=== PATIENT | male | born 1955 | race Caucasian/White ===

== ENCOUNTER 2016-10-14 20:01 | Inpatient (IN) | payer OTHER ==
[~2016-10-14] VITALS: Ht 185.4 cm; Wt 91.8 kg
[2016-10-14 20:41] VITALS: BP 123/76
[2016-10-14] MEDS ORDERED: METHADONE HCL10 M1 PO (21:01)
[2016-10-14] MEDS ORDERED: SEROQUEL100 M1 PO (21:02)
[2016-10-14] MEDS ORDERED: SEROQUEL XR300 M1 PO (21:03)
[2016-10-14] MEDS ORDERED: NEURONTIN300 M1 PO (21:03)
[2016-10-14] MEDS ORDERED: COLACE100 M1 PO (21:04)
[2016-10-14] MEDS ORDERED: AMBIEN10 M1 PO (21:05)
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
[2016-10-15 08:04] VITALS: BP 102/57
[2016-10-15 08:59] LABS: ABSOLUTE BASOPHIL COUNT 0 /CUMM (0.0-0.2); ABSOLUTE EOSINOPHIL COUNT 0.2 /CUMM (0.0-0.7); ABSOLUTE GRANULOCYTE CT 1.9 /CUMM (1.4-6.5); ABSOLUTE LYMPH COUNT 2.7 /CUMM (1.2-3.4); ABSOLUTE MONOCYTE COUNT 0.3 /CUMM (0.10-0.60); BASOPHIL % 0.3 % (0.0-2.0); EOSINOPHIL % 3.3 % (0-5); GRANULOCYTE % 37.3 % (42.2-75.2); HEMATOCRIT 36.6 % (42-52); MEAN CORPUSCULAR HGB 30.8 PG (27.0-31.0); MEAN CORPUSCULAR HGB CONC 32.6 G/DL (33.0-37.0); MEAN CORPUSCULAR VOLUME 94.3 FL (80.0-94.0); MEAN PLATELET VOLUME 13.7 FL (7.4-10.4); RBC DISTRIBUTION WIDTH 13.1 % (11.5-14.5); RED BLOOD CELL CT 3.88 /CUMM (4.70-6.10)
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
[2016-10-15 10:11] LABS: PLATELET COUNT 123 /CUMM (130-400)
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
--- NOTE | 2016-10-15 11:39 | NUR ---
PT HAS BEEN CALM AND COOPERATIVE WITH STAFF AND PEERS. HE IS COMPLIANT WITH HIS MED REGIME AND WHEN ASKED HE DENIED SUICIDAL THOUGHTS. HE VERBALIZED HIS FEELINGS APPROPRIATELY IN GROUPS AND STATED HE IS GRIEVING THE OF HIS
[2016-10-15 12:29] VITALS: BP 105/63
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
--- NOTE | 2016-10-15 15:15 | SOCIAL WORKER PROG NOTE PSYCH ---
Social Work Progress Note Progress Note ABIEL WATTERS [id number] 1955 ABIEL WATTERS [id number] Pended Authorization # Client Authorization # Type of Request [id number] CONCURRENT Date of Admission/ Start of Services Requested From Submission Date 10/14/2016 10/15/2016 10/15/2016
--- NOTE | 2016-10-15 15:24 | SOCIAL WORKER PROG NOTE PSYCH ---
Social Work Progress Note Progress Note Patient and I met twice today to discuss future treatment and current status; and to get social history for patient. Patient was pleasant and cooperative throughout; however seemed to be holding back on any possible person who may be able to participate in a family meeting. He did say that one sister is on oxygen, and can't meet, but a telephone meeting might be possible. Patient maintains that he feels safe within the hospital setting, but states that he has always been a loner, and has had trouble with commmand hallucinations yesterday and in the past. Patient has had 3 prior suicide attempts in the past. He has little structure in life, and has medical problems which impact on his life. Will be working with patient to assess suicidality, and to see if he might be interested in a more intensive follow-up program such as an IOP, particularly if [facility] has one. Patient has participated in groups, and states that he feels comfortable on this unit
[2016-10-15 15:54] VITALS: BP 135/81
--- NOTE | 2016-10-15 16:05 | SOCIAL WORKER TX PLAN PSYCH ---
Treatment Plan - Please Document: - Evidence that there is ongoing collaboration between - the patient and the interdisciplinary team, - including the patient's active participation and - responsibility for engaging in the treatment regimen, - and that the treatment plan is individualized and - relevant to the patient's conditions. - Treatment plan should reflect documentation indicating - that all active therapeutic efforts are included. Strengths/Capabilities: has stable place to live Physical Limitations (Interventions): some difficulty geting around Problem/Goals #1 Problem #1: suicidal ideation Goal (Short Term): Admit patient to locked unit, with staff checks in order to maintain safety due to suicidal ideation Patient will verbalize that he feels safe in hospital Goal (Assisted): Patient will attend group and individual therapy, and verbalize that he is not feeling suicidal Coping skills to be discussed and verbalized at times when patient begins to feel depressed and suicidal Interventions: Group and individual sesssions. 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
[2016-10-15 19:41] VITALS: BP 136/70
--- NOTE | 2016-10-15 20:35 | NUR ---
PT IS CALM, COOPERATIVE WITH STAFF AND PEERS, AND COMPLIANT WITH UNIT RULES. OFTEN IN MILIEU, INTERACTING WELL WITH OTHERS. MOOD IS STABLE, AFFECT IS EUTHYMIC TO FULL RANGE, COMMUNICATION IS ORGANIZED AND APPEARS NORMAL IN ALL RESPECTS, AND APPETITE IS NORMAL. PT DENIES SI AT THIS TIME.
--- NOTE | 2016-10-16 05:53 | NUR ---
PT WITH SOCIAL WITH JULIAN Acosta ON EVENINGS, WATCHING THE ERIC GAME. PT SLEPT.
[2016-10-16 07:33] VITALS: BP 122/70
--- NOTE | 2016-10-16 08:21 | CP SOUTH PROGRESS NOTE PSYCH ---
See Addendum Psych (Inpt) Progress Note Progress Note Include the following elements, when applicable: Involvement in the active treatment of the patient with behavioral observations of the patient and the patient's response to the treatment. Review of the ongoing treatment process in the context of the treatment plan. Indication of how multi-disciplinary staff members are carrying out the treatment plan. Plans for future interventions and recommendations for revision of the treatment plan. Liaison with other physicians/providers. Progress Note: I discussed this patient's progress to date, current mental status, treatment process in the context of the treatment plan, and discharge planning with staff/ team in the daily morning inpatient team meeting. I also met with the patient myself in individual session. Current Medications Sig/Mohsen Start time Last Medication Dose Route Stop Time Status Admin Docusate Sodium 100 MG 0800,10/14 2200 AC 10/16 PO 0734 Gabapentin 300 MG 0800,1400,10/14 2200 AC 10/16 PO 0734 Gabapentin 300 MG Q4P PRN 10/14 2130 AC PO Lorazepam 1 MG Q6H PRN 10/14 2130 AC 10/14 PO 2221 Magnesium Hydroxide 30 ML Q8P PRN 10/15 1330 AC 10/16 PO 0737 Methadone HCl 50 MG 10/15 0800 AC 10/16 PO 0735 Quetiapine Fumarate 400 MG 10/15 2200 AC 10/15 PO 2134 Quetiapine Fumarate 100 MG 10/15 0800 AC 10/16 PO 0734 Quetiapine Fumarate 300 MG 10/14 2200 DC 10/14 PO 2205 Quetiapine Fumarate 50 MG Q2P PRN 10/14 2130 AC PO Vital Signs Date Time Temp Pulse Resp B/P B/P Pulse O2 O2 Flow FiO2 Mean Ox Delivery Rate 10/16 0733 97.3 77 122/70 10/15 1941 96.2 69 136/70 10/15 1554 104 135/81 10/15 1229 74 105/63 ASSESSMENT: Chart, progress notes, labs, VS and medication list reviewed. Vital signs within normal limits. No new lab results today. EKG reviewed and within normal limits. Reviewed patient's progress to date with nursing staff. They described the patient as exhibiting a stable mood, participating in milieu activites and in good behavioral and physical control. No reports of SI, HI, AVH or evidence of other (+) symptoms. Met with patient today at 11:15AM together with Roman Abraham LCSW. Patient shared he has not had a BM in 5 days. Stated this is a common issue. Has had positive effect using fleet enema in past. I told patient this would be ordered. Stated he endorsed AH, non-command in nature, earlier this morning of a voice telling him "I'd be better off with my ...." Stated that negative AH exacerbates depression causing him to remain preoccupied over his 's . 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 Stated she was his best friend and he continues to struggle with this loss. He rated both his anxiety and depression a 6/10 (10 being the worst). Denied feeling hopeless, helpless, worthless and guilty. He denied active and passive SI, HI and visual hallucinations. Thought process was linear. No evidence of paranoia or delusions. Eye contact appropriate. Speech soft-spoken, monotone. Affect calm, blunted, non-labile. Described his mood as "depressed." Reported sleeping "real good" last night, approx. 4 hours. Stated he typically receives less sleep outside of the hospital. Stated his appetiteand energy level are "ok. " Reported tolerating medication adjustments well, denied untoward effects. No evidence of movement disorder. Patient agreeable to increasing Seroquel to further target AH. PLAN: 1. Cont. monitoring for safety, mood, SI and AH. 2. Fleet enema x 1 for constipation. Cont. Colace. 3. Increase Seroquel from 100mg QAM to 200mg QAM for AH. 4. If AH resolve, consider adding low-dose antidepressant. 5. Will temporarily add Ativan 1mg prn QHS for insomnia/anxiety. 6. Collateral called placed to psychiatrist Dr. Abbasi (?spelling) at [facility], VM left. 7. Dispo planning per primary team.
--- NOTE | 2016-10-16 11:23 | NUR ---
PT IS STABLE WITH FLAT AFFECT, DOES NOT ENGAGE WITH STAFF/PEERS MUCH, IF AT ALL. WAS PRESENT WTIHIN THE COMMUNITY THIS MORNING WATCHING THE NEWS, ATE BREAKFAST AND THEN WENT TO SLEEP IN PT ROOM. PT HAS NOT BEEN ATTENDING ANY GROUPS. PT DID NOT MAKE ANY EYE CONTACT THIS MORNING WHEN STAFF WAS ASKING QUESTIONS REGARDING SI/HI DURING VITALS. VS ARE STABLE AND DENIES ANY SI/HI. PT DENIES ANY AUDITORY HALLUCINATIONS AT THIS TIME.
[2016-10-16 12:11] VITALS: BP 123/68
--- NOTE | 2016-10-16 12:42 | IP INCIDENTAL NOTE PSYCH ---
Incidental Note Notation: left for psychiatrist, Dr. Abbasi (?spelling) at [facility] requesting call back for collateral information. out of office, will next be in , .
--- NOTE | 2016-10-16 13:40 | SOCIAL WORKER PROG NOTE PSYCH ---
Social Work Progress Note Progress Note Met with patient on one to one, following speaking with patient with production staff worker, Haritha Ann APRN. Patient stated that he was feeling betterm as he had bowel movement, and relayed that he feels so much more comfortable. Patient wants to return to [facility] in [place], and that he has been and wants to go back to the IOP there. Called [facility] at [facility], but just missed her, but ledt message asking her to call me on Wednesday regarding follow uo; and specifically requesting IOP level. Patient has been verbal and active on the unitm and attending all of the groups. He is still verbalizing depression with some suicidal ideation. Today it appeared to be of a more passive nature. Will work on patient follow-up at [facility] on Thursday, October 20, 2016.
[2016-10-16 16:03] VITALS: BP 125/68
--- NOTE | 2016-10-16 19:42 | NUR ---
PT IS CALM, COOEPRATIVE WITH STAFF AND PEERS, AND COMPLIANT WITH UNIT RULES. OFTEN IN MILIEU, INTERACTING WELL WITH OTHERS. MOOD IS STABLE, AFFECT APPEARS EUTHYMIC TO FULL RANGE, COMMUNICATION IS ORGANIZED AND APPEARS NORMAL IN ALL RESPECTS, AND APPETITE IS NORMAL. PT DENIES SI AT THIS TIME.
--- NOTE | 2016-10-17 05:00 | NUR ---
SLEPT WELL OVERNIGHT WITH NO COMPLAINTS
[2016-10-17 07:33] VITALS: BP 111/70
[2016-10-17 07:54] VITALS: BP 109/69
[2016-10-17 12:24] VITALS: BP 111/60
--- NOTE | 2016-10-17 13:47 | NUR ---
PT IS OUT IN THE COMMUNITY INTERACTING WELL WITH STAFF AND PEERS. PT IS COMPLIANT AND COOPERATIVE WITH UNIT RULES. PT MOOD IS STABLE WITH A FLAT AFFECT. PT CAN BE IRRITABLE AT TIMES WHEN BEING TOLD TO WAIT FOR CHANGE HIS BEHAVIOR. PT IS ATTENDING SOME GROUPS. PT DENIES SI THOUGHTS.
--- NOTE | 2016-10-17 14:35 | CP SOUTH PROGRESS NOTE PSYCH ---
Psych (Inpt) Progress Note Progress Note Include the following elements, when applicable: Involvement in the active treatment of the patient with behavioral observations of the patient and the patient's response to the treatment. Review of the ongoing treatment process in the context of the treatment plan. Indication of how multi-disciplinary staff members are carrying out the treatment plan. Plans for future interventions and recommendations for revision of the treatment plan. Liaison with other physicians/providers. Progress Note: Chart reviewed and progress d/w nursing staff. Interviewed patient this morning. Pleasant and cooperative though frustrated that "my private room was taken away from me. I'm an older individual. I like my privacy". Says he continues to hear voices beckoning him to the afterlife that are accompanied by thoughts of without plan or intent to harm himself. Continues to have depressed mood. Main concern is his constipation and hard bowel movements though would like to continue taking his current bowel regimen without alteration. Denies HI. Vitals wnl. No new labs today. MSE: adequately groomed AAM dressed appropriately, tattooed, speech largely wnl. Mood "down", affect constricted, non-labile, congruent. TP mildly perseverative, TC focused on bowel habits. VAgue SI/passive wish as noted above. Denies HI. +AH without CAH. Cognition was grossly intact. I/J were fair. A/P: Continue present management as per primary team.
[2016-10-17 15:36] VITALS: BP 122/67
--- NOTE | 2016-10-17 19:58 | NUR ---
PT HAS BEEN SITTING IN THE KT INTERACTING WITH PEERS AND WATCHING TV. HE ALSO HAS BEEN EXCERSISIING/WALKING THRU THE HALLWAY AND STAYING BUSY. HE HAS BEEN COMPLIANT AND STABLE THROUGHOUT SHIFT AND HAS DENIED ANY THOUGHTS OF SI AT THIS TIME.
[2016-10-17 20:14] VITALS: BP 125/68
--- NOTE | 2016-10-18 04:31 | NUR ---
SLEPT WELL NI ISSUES,
[2016-10-18 07:55] VITALS: BP 112/62
[2016-10-18 11:57] VITALS: BP 115/66
--- NOTE | 2016-10-18 13:20 | NUR ---
out in the community, slight irritation, denied thoughts of self harm when asked. interacting with peer in kitchen
--- NOTE | 2016-10-18 13:43 | CP SOUTH PROGRESS NOTE PSYCH ---
Psych (Inpt) Progress Note Progress Note Include the following elements, when applicable: Involvement in the active treatment of the patient with behavioral observations of the patient and the patient's response to the treatment. Review of the ongoing treatment process in the context of the treatment plan. Indication of how multi-disciplinary staff members are carrying out the treatment plan. Plans for future interventions and recommendations for revision of the treatment plan. Liaison with other physicians/providers. Progress Note: Chart reviewed and progress d/w nursing staff. Interviewed patient this morning. Pleasant and cooperative. Much brighter today. Says he slept pretty well last night with addition of trazodone, asks to continue at 100 mg nightly. Denies any recurrence of AH and denies SI/HI. Says mood is improving. Vitals wnl. No new labs today. REviewed EKG and QTc ~420 MSE: adequately groomed AAM dressed appropriately, tattooed, speech largely wnl. Mood "actually a bit better today", affect increasingly euthymic, non-labile, congruent. TP linear, TC wnl. Denies SI/ HI. Denies AVH today. Cognition was grossly intact. I/J were fair. A/P: Will add trazodone 100 mg nighlty for sleep. REviewed R/B/SEs of this medication. Qtc wnl when reviewed on 10/15. Otherwise continue present management.
[2016-10-18 15:47] VITALS: BP 113/66
[2016-10-18 19:58] VITALS: BP 136/66
--- NOTE | 2016-10-18 20:08 | NUR ---
PT HAS BEEN PLEASANT THRU THE AFTERNOON. HE ALSO HAS BEEN SPENDING TIME SOCIALIZING WITH PEERS AND STAFF. PT HAS APPEARED STABLE AND HAS BEEN COMPLIANT. PT DENIES ANY THOUGHTS OF SI AT THIS TIME.
[2016-10-19 07:59] VITALS: BP 101/59
--- NOTE | 2016-10-19 11:02 | CP SOUTH PROGRESS NOTE PSYCH ---
Psych (Inpt) Progress Note Progress Note Patients record reviewed BP 101/59, Pulse 73/min, Temp 96.9 No new labs Sleep log indicated that patient slept but he thought otherwise I have a sleep disorder I interviewed patient this morning in his room. Reason for admission: 61-year-old, unemployed (on disability), AAM with a history of Bipolar disorder who presented to [facility] on 10/12/16 reporting command auditory hallucinations to jump off of a bridge. Patient was admitted directly from [facility] ED to [facility], voluntarily. Diagnoses of Record: Bipolar disorder, MRE depressed with psychotic features R/O MDD, recurrent, severe with psychotic features Opioid use disorder (on MMT) Mental State: Pleasant and cooperative, he was lying in bed, he said he was tired because he did not sleep well, sleep log showed he slept well Brighter earlier in kitchen area. Denies any recurrence of AH and denies SI/HI. Says mood is improving. adequately groomed , dressed appropriately, normal speech largely. Mood "good euthymic, non-labile, congruent. Coherent thoughts , no delusions, Denies SI/ HI. Denies AVH today. Cognition was grossly intact. A/P: His only complaint was his sleep, I discussed options with him, he said he wanted less Seroquel and more trazodone at bedtime as he believes Trazodone was more helpful than Seroquel for that We agreed on the following: Reduce Seroquel to 200 mg AM and 300 mg at bedtime Increase Trazodone to 200 mg at bedtime Will follow with his regular treatment team tomorrow
[2016-10-19 12:32] VITALS: BP 98/57
--- NOTE | 2016-10-19 13:27 | NUR ---
OUT IN COMMUNITY. ATTENDED GROUP AND INTERACTS WITH PEERS. GIVEN PRN TYLENOL FOR HEADACHE WITH POSITIVE EFFECT. MOOD IS STABLE, FULL RANGE OF AFFECT. DENIED THOUGHTS OF SELF HARM WHEN ASKED
[2016-10-19 16:01] VITALS: BP 112/65
--- NOTE | 2016-10-19 19:07 | NUR ---
PT IS CALM, COOPERATIVE WITH STAFF AND PEERS, AND COMPLIANT WITH UNIT RULES. OFTEN IN MILIEU, INTERACTING WELL WITH OTHERS. MOOD IS STABLE, AFFECT APPEARS EUTHYMIC TO FULL RANGE, COMMUNICATION IS ORGANIZED AND APPEARS NORMAL IN ALL RESPECTS, AND APPETITE IS NORMAL. PT DENIES SI AT THIS TIME.
[2016-10-19 19:42] VITALS: BP 123/75
--- NOTE | 2016-10-20 05:46 | NUR ---
PT APPEARED TO SLEEP. TRAZADONE INCREASED FROM 1090 TO 200. SEROQUEL DECREASED FROM 400 TO 300.
--- NOTE | 2016-10-20 05:57 | NUR ---
PT SLEPT. HE CONTINUES DEPRESSED, SLIGHTLY IRRITABLE.
[2016-10-20 08:12] VITALS: BP 109/62
--- NOTE | 2016-10-20 09:06 | CP SOUTH PROGRESS NOTE PSYCH ---
Psych (Inpt) Progress Note Progress Note Include the following elements, when applicable: Involvement in the active treatment of the patient with behavioral observations of the patient and the patient's response to the treatment. Review of the ongoing treatment process in the context of the treatment plan. Indication of how multi-disciplinary staff members are carrying out the treatment plan. Plans for future interventions and recommendations for revision of the treatment plan. Liaison with other physicians/providers. Progress Note: I discussed this patient's progress to date, current mental status, treatment process in the context of the treatment plan, and discharge planning with staff/ team in the daily morning inpatient team meeting. I also met with the patient myself in individual session. Current Medications Sig/Mohsen Start time Last Medication Dose Route Stop Time Status Admin Acetaminophen 650 MG Q4P PRN 10/19 1130 AC 10/19 PO 1127 Docusate Sodium 100 MG 0800,10/14 2200 AC 10/20 PO 0828 Gabapentin 300 MG 0800,1400,10/14 2200 AC 10/20 PO 0828 Gabapentin 300 MG Q4P PRN 10/14 2130 AC 10/17 PO 2153 Magnesium Hydroxide 30 ML Q8P PRN 10/15 1330 AC 10/19 PO 2212 Melatonin 5 MG AT BEDTIME 10/16 2200 AC 10/19 PO 2211 Methadone HCl 50 MG 10/15 0800 AC 10/20 PO 0827 Quetiapine Fumarate 300 MG AT BEDTIME 10/19 2200 AC 10/19 PO 2212 Quetiapine Fumarate 200 MG 10/17 0800 AC 10/20 PO 0828 Quetiapine Fumarate 50 MG Q4 HRS NEEDED PRN 10/16 1615 AC PO Quetiapine Fumarate 400 MG 10/15 2200 DC 10/18 PO 2154 Trazodone HCl 200 MG AT BEDTIME 10/19 2200 AC 10/19 PO 2211 Trazodone HCl 100 MG AT BEDTIME 10/18 2200 DC 10/18 PO 2153 Vital Signs Date Time Temp Pulse Resp B/P B/P Pulse O2 O2 Flow FiO2 Mean Ox Delivery Rate 10/21 811 96.8 86 109/62 10/19 1942 97.5 73 123/75 10/19 1601 77 112/65 10/19 1232 77 98/57 A: Chart, weekend progress notes, labs, vital signs and medication list were reviewed. Vital signs within normal limits. No new lab results today. Seroquel 400mg QHS was decreased to 300mg QHS, and Trazodone 100mg QHS for insomnia/ depression was increased to 200mg QHS. Patient's progress to date was reviewed with nursing staff. Per staff, patient and a female peer had a minor verbal altercation this morning. Otherwise, patient's behavior has been in good control. No c/o of AH, SI or HI. Patient attending groups and had no significant events over the weekend. Met with patient individually this morning. On entrance into my office, stated "so I hear you guys are gonna kick me out tomorrow." He shared that he didn't have "that great of a weekend...had a few bad days." He did not elaborate further on this. Per weekend MD notes, there were no reports of AH since . Patient reported vague intermittent AH, denied CAH. Reported AH at baseline since mid-30's. Does not appear to be responding to internal stimuli. Denied AH to be distressing in nature. Reported improved sleep since increase in Trazodone to 200mg QHS. Denied feeling hopeless, helpless, worthless, guilty. Denied passive and active SI, plans and intent. Stated he would never do anything that would hurt his family. Denied HI, VH, PI. He was informed that tx team was considering tomorrow for discharge given improved condition. Patient requesting discharge on . Informed patient that we will reassess his condition tomorrow, but to likely plan for discharge tomorrow. Patient reports tolerating medications well, denied untoward effects. Agreeable to continue taking. Offered increase in HS Seroquel and slight reduction in Trazodone given continued AH. Pt not agreeable to further medication changes. Denied physical complaints. P: 1. Cont. monitoring on unit for safety, mood and AH. 2. Cont. current meds - pt not agreeable to further med changes. 3. 2nd VM left for outpt psychiatrist Dr. Abbasi (? spelling) at [facility] for collateral. 4. Arrange dispo for pt to resume IOP at [facility] in [place]. 5. Likely discharge tomorrow, if presentation remains stable.
--- NOTE | 2016-10-20 11:50 | IP INCIDENTAL NOTE PSYCH ---
Incidental Note Notation: 2nd left for psychiatrist, Dr. Abbasi (?spelling) at 11:48AM today. Awaiting return phone call.
[2016-10-20 12:46] VITALS: BP 107/64
--- NOTE | 2016-10-20 13:16 | SOCIAL WORKER PROG NOTE PSYCH ---
Social Work Progress Note Progress Note Met with patient today in his room, as patient did not go to group. Patient had looked good over the weekend reportedly, and we has has numerous talks about sports and playoffs, and patient has appeared to be in good spirits. Today, patient stated that he was "not feeling too well", and indicated that he would rather stay until . Patient was informed that we had tentatively made arrangements for his follow-up care at [facility] in [place] based upon discharge tomorrow. Spoke with More at [facility] who confirmed that patient is in their IOP which meets 3 days per week; however patient misses considerable time there as he is hospitalized frequenly. More indicate that patient was hospitalized often, and that their plan was to contact [facility] as he was being hopitalized often. Patient is verbalizing some of the same symptoms that he espoused when admitted
--- NOTE | 2016-10-20 13:20 | NUR ---
PT ATTENDED PLANNING MEETING AND STATED THAT HE FELT IRRITABLE AND WANTED TO SPEAK WITH THE DOCTOR. HE AND A PEER WERE ARGUING THIS MORNING AND HE WAS ABLE TO BE REDIRECTED. HE REFUSED TO ANSWER WHEN ASKED IF HE WAS HAVING THOUGHTS TO HURT HIMSELF. 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
[2016-10-20 16:28] VITALS: BP 141/64
--- NOTE | 2016-10-20 17:01 | IP INCIDENTAL NOTE PSYCH ---
Incidental Note Notation: Received collateral from Dr. Mccullough from [facility]. She reported that at baseline, Devon is a nice man and easy going. She last saw him in August 2016 and she sees him infrequently. Interaction had been brief, he had denied SI and depressed mood. He had also denied AH. She stated that typically when he decompensates and ends up hospitalized it is in the context of substance abuse. She reported that he tends to dabble in BZD, cocaine and etoh on occasion. Reports he typically ends up in the energency room 6-7x year d/t relapsing. She has been treating him since December of 2011 and is willing to continue treating him. She is in agreement with tx recommendation of [facility] IOP.
[2016-10-20 20:18] VITALS: BP 99/63
--- NOTE | 2016-10-20 20:49 | NUR ---
PT IS CALM, COOPERATIVE WITH STAFF AND PEERS,A ND COMPLIANT WITH UNIT RULES. OFTEN IN MILIEU, INTERACTING WELL WITH OTHERS. MOOD IS STABLE, AFFECT IS EUTHYMIC TO FULL RANGE, COMMUNICATION IS ORGANIZED AND APPEARS TO BE NORMAL IN ALL RESPECTS, AND APPETITE IS NORMAL. PT DENIES SI AT THIS TIME.
[2016-10-21 07:48] VITALS: BP 125/68
--- NOTE | 2016-10-21 09:32 | NUR ---
PT IS TENTATIVELY SCHEDULED FOR DISCHARGE TO [facility] TODAY. HE EXHIBITS IMPROVEMENT IN HIS MOOD AND ABILITY TO FUNCTION. HE DENIES ANY THOUGHTS OF SUICIDE OR SELF HARM AT THIS TIME. HE DENIES AH. HE IS COMPLIANT WITH HIS MED REGIME AND WILL FOLLOW UP WITH [facility]. IOP IS RECOMMENDED
--- NOTE | 2016-10-21 11:02 | CP SOUTH PROGRESS NOTE PSYCH ---
Psych (Inpt) Progress Note Progress Note Include the following elements, when applicable: Involvement in the active treatment of the patient with behavioral observations of the patient and the patient's response to the treatment. Review of the ongoing treatment process in the context of the treatment plan. Indication of how multi-disciplinary staff members are carrying out the treatment plan. Plans for future interventions and recommendations for revision of the treatment plan. Liaison with other physicians/providers. Progress Note: I discussed this patient's progress to date, current mental status, treatment process in the context of the treatment plan, and discharge planning with staff/ team in the daily morning inpatient team meeting. I also met with the patient myself in individual session. Current Medications Sig/Mohsen Start time Last Medication Dose Route Stop Time Status Admin Acetaminophen 650 MG Q4P PRN 10/19 1130 AC 10/19 PO 1127 Docusate Sodium 100 MG 0800,10/14 2200 AC 10/21 PO 0752 Gabapentin 300 MG 0800,1400,10/14 2200 AC 10/21 PO 1439 Gabapentin 300 MG Q4P PRN 10/14 2130 AC 10/17 PO 2153 Magnesium Hydroxide 30 ML Q8P PRN 10/15 1330 AC 10/20 PO 1420 Melatonin 5 MG AT BEDTIME 10/16 2200 AC 10/20 PO 2147 Methadone HCl 50 MG 10/15 0800 AC 10/21 PO 0752 Quetiapine Fumarate 400 MG AT BEDTIME 10/21 2200 AC PO Quetiapine Fumarate 300 MG AT BEDTIME 10/19 2200 DC 10/20 PO 2147 Quetiapine Fumarate 200 MG 10/17 0800 AC 10/21 PO 0752 Quetiapine Fumarate 50 MG Q4 HRS NEEDED PRN 10/16 1615 AC PO Trazodone HCl 100 MG AT BEDTIME 10/21 2200 AC PO Trazodone HCl 200 MG AT BEDTIME 10/19 2200 DC 10/20 PO 2147 Vital Signs Date Time Temp Pulse Resp B/P B/P Pulse O2 O2 Flow FiO2 Mean Ox Delivery Rate 10/22 747 97.6 65 125/68 10/20 2017 97.8 92 99/63 10/20 1628 80 141/64 10/20 1246 74 107/64 A: Chart, weekend progress notes, labs, vital signs and medication list were reviewed. Vital signs within normal limits. No new lab results today. Patient's progress to date was reviewed with nursing staff. Per staff, patient was irritable and cursing at staff memeber last night. Was redirectable with no further issues. No c/o SI, HI, or AH to nursing staff. Met with patient today together with Lisa Rahman LCSW (covering for Roman Abraham LCSW). Initially on encounter, patient described his mood as feeling "a little better than when I first got here." He made poor eye contact, with his head looking down. Speech quiet, monotonous. Shared about missing his who is x 6 years. Expressed recurrence of +CAH today telling him to "jump off a bridge to be with my ." When asked what bridge he would jump from, he stated "any bridge, there's plenty to choose from." He did not elaborate on the number of voices or whether voices are male or female. He did not appear to be internally responding. When asked to rate his level of intent using a scale of 0 -10 (0 = no intent, 10 = strong intent), patient rated an 8/10. He endorsed SI with plan/intent in the context of + CAH. Patient gave a safety promise on unit. Denied HI, PI, bizarre thoughts. No evidence of delusions. Reported energy level is "ok." Reported appetite is "normal." Reported recurrence of interupted sleep. Thought process linear. Thought content + for SI. Cognition grossly intact. Informed patient that Trazodone will be decreased from 200mg QHS to 100mg QHS; Seroquel will be increased back to 400mg QHS from 300mg QHS for AH. Patient agreeable. Patient making slow progress. Mood and AH had initially improved over the weekend and slightly plummeted yesterday and continuing into today in where patient cannot contract for safety to discharge. Continues to refuse having family involved in inpatient tx. Suspect that patient may be avoiding something outside of the hospital. Given reported symptoms of +CAH to jump off a bridge, he requires continued hospitalization for safety and stabilization. P: 1. Reassess patient's presentation tomorrow, if stable, discharge with f/u to [facility] IOP. 2. Increase Seroquel from 300mg to 400mg QHS for AH. Utilize prn Seroquel as ordered for AH or symptoms of psychosis. 3. Decrease Trazodone from 200mg QHS to 100mg QHS (as this may be activating AH) despite inconsistent reports of AH on 200mg QHS. 4. Cont. monitoring on unit for AH, mood and SI.
--- NOTE | 2016-10-21 11:20 | NUR ---
PT MET WITH HIS VP RESEARCH AND TOLD HER HE IS HAVING VOICES THAT TELL HIM TO JUMP OFF A BRIDGE AND HE DOES NOT FEEL SAFE TO LEAVE TODAY. DISCHARGE IS POSTPONED AT THIS TIME
[2016-10-21 12:23] VITALS: BP 120/56
--- NOTE | 2016-10-21 13:18 | SOCIAL WORKER PROG NOTE PSYCH ---
Social Work Progress Note Progress Note 11:00am: JANINE and Megan Johnson APRN met with pt. He reported that he was feeling better than when he was first admitted, however, has been experiencing command auditory hallucinations of "go be with your " and experiences a thought to "jump off a bridge, any bridge." Per this discussion, pt will not be discharged from [facility] today. He stated that he has found his experience in IOP to be helpful and would like to return after d/c from [facility]. Plan is for pt to return to IOP at [facility] in [place] upon discharge from [facility]. JANINE spoke with More, pt's counselor, at [facility]. She stated that when pt is ready to return to their IOP, he can arrive with d/c paperwork the day following discharge and can re-engage in services ([facility]). She stated that he can attend the Wednesday walk-in hours for his psychiatrist, Dr. Mccullough, any Wednesday after 11am. Discharge paperwork requested is the W 10 and/or discharge summary, EKG (if available) and verification of the last dose of medication provided.
[2016-10-21 16:06] VITALS: BP 112/76
[2016-10-21 19:37] VITALS: BP 94/52
--- NOTE | 2016-10-21 20:28 | NUR ---
PT IS RELATIVELY COOPERATIVE WITH STAFF AND PEERS, AND COMPLIANT WITH UNIT RULES. PT IS AT TIMES IRRITABLE, BUT THIS SEEMS TO PASS QUICKLY. OFTEN PT IS IN MILIEU INTERACTING WITH OTHERS. MOOD IS STABLE, AFFECT APPEARS EUTHYMIC TO FULL RANGE, COMMUNICATION IS ORGANIZED AND APPEARS NORMAL IN ALL RESPECTS, AND APPETITE IS NORMAL. PT DENIES SI AT THIS TIME.
--- NOTE | 2016-10-22 03:47 | NUR ---
SLEPT WELL AFTER FLEETS ENEMA.
--- NOTE | 2016-10-22 06:30 | NUR ---
NO MENTION BY PT. OF ANY SUICIDAL IDEATION THIS SHIFT AND LOKKING FORWARD TO DISCHARGE TODAY.
[2016-10-22 07:49] VITALS: BP 118/66
--- NOTE | 2016-10-22 10:39 | SOCIAL WORKER PROG NOTE PSYCH ---
Social Work Progress Note Progress Note [employer] ride scheduled from hospital to pt's home Spoke with Debbie at [facility] apple picking supervisor time: noon at the main lobby of the hospital reference number: [id number] Alternate contact name provided to Nahum is Roman Chan)
[2016-10-22] MEDS ORDERED: TRAZODONE HCL100 M1 PO (11:32)
[2016-10-22] MEDS ORDERED: QUETIAPINE FUM100 M1 PO ×2 (11:33→11:34)
[2016-10-22] MEDS ORDERED: MELATONIN5 M7 PO (11:35)
--- NOTE | 2016-10-22 11:50 | NUR ---
PT IS PRESENT WITHIN THE COMMUNITY, VSS, SOCIAL WITH PEERS AND STAFF ALTHOUGH DEMONSTRATES ENTILED BEHAVIOR/PERSONALITY AT TIMES IS OVERALL CALM & COOPERATIVE, NO ISSUES OR COMPLAINTS REPORTED OR OBSERVED, DENIES SI, MOOD STABLE WITH FULL RANGE AFFECT, W-10, PT RESOURCE GUIDE AND INFORMATION PACKETS RE: SI & DEPRESSION REVIEWED AND GIVEN TO PT AND VERBALIZED UNDERSTANDING. PT HAS A + UNDERSTANDING RE: FOLLOW UP/ DISCHARGE INSTRUCTIONS AND MEDICATION REGIMENT, NO QUESTIONS, MET WITH DISCHARGE TEAM ALREADY AND AWAITING CAB.
[2016-10-22 12:02] VITALS: BP 114/65
--- NOTE | 2016-10-22 12:59 | CP SOUTH PROGRESS NOTE PSYCH ---
Psych (Inpt) Progress Note Progress Note Include the following elements, when applicable: Involvement in the active treatment of the patient with behavioral observations of the patient and the patient's response to the treatment. Review of the ongoing treatment process in the context of the treatment plan. Indication of how multi-disciplinary staff members are carrying out the treatment plan. Plans for future interventions and recommendations for revision of the treatment plan. Liaison with other physicians/providers. Progress Note: Medication list reviewed. Case and treatment plan discussed in team meeting. Staff reports that the patient is looking forward to discharge, to attend [facility] IOP. Patient seen at 11:27 a.m. with medical student. Affect is slightly irritable. Mood: "just a little restless, ready to go." Sad ~4/10. Anxiety ~4/10. Denies feeling hopeless, helpless, worthless or guilty. Denies active and passive SI, HI and AH. Reports last AH were ~3 days ago. Denies VH, PI and magical moise. Reports sleeping 4-5 hours/night, which has been his pattern his whole life. Appetite: "I'm eating." Reports he has a lot of energy. Tolerating medications well, without complaint. Feels ready and safe for discharge. IMPRESSION: Condition improved. Okay for discharge with follow up as above.
--- NOTE | 2016-10-22 13:32 | SOCIAL WORKER PROG NOTE PSYCH ---
Social Work Progress Note Progress Note Patient was walked to the [facility] home. Patient stated emphatically that he was not suicidal and was adamant about wanting to leave as soon as possible. Patient will be reurning to [facility] in [place], where he is followed by More, and is in their IOP, \ and can return there anytime when he is not in the hospital. Patient has been hospitalized many times over past several years, so he misses time at [facility] frequently. Patient was returning to his own home, which is within walking distance of [facility],. He gets his methadone there (50 m.g.), and has standing appointment. Patient denied hearing any voices and ipresents no danger to self. He was seen by DR Byrd prior discharge, and was discharged Seroquel 200 m.g. a.m. and 400 m.g. p m. and Trazadone 50 m.g., Neurotin 300 m.g. and Methadone 50 m.g.
--- NOTE | 2016-11-03 10:37 | DISCHARGE SUMMARY REPORT-PSYCH ---
Visit Information Visit Dates/Diagnosis' Admission Date: 10/14/16 Discharge Date: 10/22/16 Reason for Admission: Command AH to jump off a bridge. Psy Discharge Primary Diag: Bipolar d/o, depressed w/ psychotic features Psy Discharge Secondary Diag: R/o major depression recurrent severe w/ psychotic features Opioid use d/o on MMP Stomach cancer in remission Anemia Chronic constipation Hospital Course Significant Lab Findings: SGPT 77, triglycerides 162, HgB 11.0, HCT 36.6, platelets 123. Course Complications: None. Consultations: Admission H&P was done by Dr. Kashif Brock. Please refer to his note for additional information. Allergies: Uncoded Allergies: IV DYE (SEIZURES 10/14/16) Hospital Course/[place] Response: The patient was monitored on the unit for safety, psychosis and mood disorder. He participated in multi-modal treatments on the unit. Ambien was stopped. Neurontin, colace and methadone were continued. Trazodone and melatonin were added. Seroquel was changed to 200 mg in the AM and 400 mg at bedtime. Mood and affect have improved. SI and AH have remitted. Progress note from date of discharge, 10/22/16: Medication list reviewed. Case and treatment plan discussed in team meeting. Staff reports that the patient is looking forward to discharge, to attend [facility]. Patient seen at 11:27 a.m. with medical student. Affect is slightly irritable. Mood: "just a little restless, ready to go." Sad ~4/10. Anxiety ~4/10. Denies feeling hopeless, helpless, worthless or guilty. Denies active and passive SI, HI and AH. Reports last AH were ~3 days ago. Denies VH, PI and magical moise. Reports sleeping 4-5 hours/night, which has been his pattern his whole life. Appetite: "I'm eating." Reports he has a lot of energy. Tolerating medications well, without complaint. Feels ready and safe for discharge. IMPRESSION: Condition improved. Okay for discharge with follow up as above. Discharge HBIPS - Tobacco Use Treatment Offered Post DC Medications Offered: Not Applicable Post DC Tobacco Treatment Plan: Not Applicable - EtOH/Drug Use D/O Treatment Offered Post DC Medications Offered: Med Not Indicated for D/O Post DC EtOH/SubAbuse [place] Plan: Other SubAbuse/Dual Pgm ([facility]) Program Appt Date: 10/23/16 Program Appt Time: 0900 (Walk-in) Metabolic Screening - Screen if on a Neuroleptic Medication - Metabolic screening should include: - Blood Pressure, BMI, Glucose or Hgb A1c, & a - Lipid profile from within the past 365 days. Metabolic Screening () Not Applicable, patient not on a neuroleptic. OR ([x]) Patient on a neuroleptic(s) . Enter below results for Glucose or Hemoglobin A1C, and lipid panel if obtained during the last 365 days. BMI: Blood Pressure: 114/65 Laboratory Results (If applicable): Lab Cholesterol 104 MG/DL 10/15/16 0625 Cholesterol/HDL Ratio 2 % 10/15/16 0625 Glucose 107 mg/dL H 10/15/16 0625 HDL Cholesterol 52 mg/dL 10/15/16 0625 LDL Cholesterol, Calc 20 mg/dL L 10/15/16 0625 Triglycerides 162 mg/dL H 10/15/16 0625 Lab Hemoglobin A1c 4.9 % 10/15/16 0625 Discharge Instructions General Discharge Information Discharge Medications: Discharge Medications- (Dose, route, freq, indication): START taking these NEW Home Medications: Trazodone HCl Dose: ORAL, AT BEDTIME for Qty: 14 Called in to (Trazodone HCl) 100 100 Milligram sleep Refills: 0 Pharm 1 MG TABLET Last Taken: 10/21/16 Time: 2200 Quetiapine Fumarate Dose: ORAL, DAILY @8 AM for Qty: 28 Called in to (Quetiapine 200 Milligram clear thoughts/help mood Refills: 0 Pharm 1 Fumarate) 100 MG Last Taken: 10/22/16 TABLET Time: 0800 Quetiapine Fumarate Dose: ORAL, AT BEDTIME for to Qty: 56 Called in to (Quetiapine 400 Milligram clear thoughts/help mood Refills: 0 Pharm 1 Fumarate) 100 MG Last Taken: 10/21/16 TABLET Time: 2200 Melatonin Dose: ORAL, AT BEDTIME for Qty: 14 Called in to (Melatonin) 5 MG 5 Milligram sleep Refills: 0 Pharm 1 TABLET Last Taken: 10/21/16 Time: 2200 CONTINUE taking these Home Medications: Methadone Hydrochloride Dose: ORAL, Every Morning for (Methadone HCl) 10 MG 50 Milligram ACID REFLUX TABLET Last Taken: 10/22/16 Time: 0800 Gabapentin (Neurontin) Dose: ORAL, THREE TIMES DAILY 300 MG CAPSULE 300 Milligram for ANXIETY Last Taken: 10/17/16 Time: 2200 Docusate Sodium (Colace) Dose: ORAL, TWICE DAILY for 100 MG CAPSULE 100 Milligram STOOL SOFTENING Last Taken: 10/22/16 Time: 0800 STOP taking these DISCONTINUED Home Medications: Quetiapine Fumarate (Seroquel) Dose: ORAL, AM for PSYCHOSIS 100 MG TABLET 100 Milligram Reason Stopped: Changed Dose Quetiapine Fumarate (Seroquel Dose: ORAL, for PSYCHOSIS XR) 300 MG TAB.ER.24H 300 Milligram Reason Stopped: Changed Dose Zolpidem Tartrate (Ambien) 10 Dose: ORAL, TAKE AT BEDTIME for SLEEP MG TABLET 10 Milligram Reason Stopped: Changed to different med 1: [facility] [id number] ([address] [place], [place] [id number] Multiple Neuroleptics: ([x]) Not Applicable OR Document below three failed attempts at monotherapy, or a plan to taper to monotherapy, or augmentation of Clozapine. () Patient's Diet: Regular. Patient's Activity: No restrictions. DC Disposition: Return to home. Recommendations: Take medications as prescribed. Follow up with scheduled outpatient appointments. See PCP for elevated SGPT 77, elevated trigylcerides 162, anemia with low HgB 11.9, low HCT 36.6 and low platelets 123. Referred To: [facility] walk-in 10/23/16. Copies To: [facility]
--- NOTE | 2016-11-03 11:50 | DISCHARGE SUMMARY REPORT-PSYCH ---
See Addendum Visit Information Visit Dates/Diagnosis' Admission Date: 10/14/16 Discharge Date: 10/22/16 Reason for Admission: Command AH to jump off a bridge. Psy Discharge Primary Diag: Bipolar d/o, depressed w/ psychotic features Psy Discharge Secondary Diag: R/o major depression recurrent severe w/ psychotic features Opioid use d/o on MMP Stomach cancer in remission Anemia Chronic constipation Hospital Course Significant Lab Findings: SGPT 77, triglycerides 162, HgB 11.0, HCT 36.6, platelets 123. Course Complications: None. Consultations: Admission H&P was done by Dr. Kashif Brock. Please refer to his note for additional information. Allergies: Uncoded Allergies: IV DYE (SEIZURES 10/14/16) Hospital Course/TX Response: The patient was monitored on the unit for safety, psychosis and mood disorder. He participated in multi-modal treatments on the unit. Ambien was stopped. Neurontin, colace and methadone were continued. Trazodone and melatonin were added. Seroquel was changed to 200 mg in the AM and 400 mg at bedtime. Mood and affect have improved. SI and AH have remitted. Progress note from date of discharge, 10/22/16: Medication list reviewed. Case and treatment plan discussed in team meeting. Staff reports that the patient is looking forward to discharge, to attend [facility]. Patient seen at 11:27 a.m. with medical student. Affect is slightly irritable. Mood: "just a little restless, ready to go." Sad ~4/10. Anxiety ~4/10. Denies feeling hopeless, helpless, worthless or guilty. Denies active and passive SI, HI and AH. Reports last AH were ~3 days ago. Denies VH, PI and magical moise. Reports sleeping 4-5 hours/night, which has been his pattern his whole life. Appetite: "I'm eating." Reports he has a lot of energy. Tolerating medications well, without complaint. Feels ready and safe for discharge. IMPRESSION: Condition improved. Okay for discharge with follow up as above. Discharge HBIPS - Tobacco Use Treatment Offered Post DC Medications Offered: Not Applicable Post DC Tobacco Treatment Plan: Not Applicable - EtOH/Drug Use D/O Treatment Offered Post DC Medications Offered: Med Not Indicated for D/O Post DC EtOH/SubAbuse [place] Plan: Other SubAbuse/Dual Pgm ([facility]) Program Appt Date: 10/23/16 Program Appt Time: 0900 (Walk-in) Metabolic Screening - Screen if on a Neuroleptic Medication - Metabolic screening should include: - Blood Pressure, BMI, Glucose or Hgb A1c, & a - Lipid profile from within the past 365 days. Metabolic Screening () Not Applicable, patient not on a neuroleptic. OR ([x]) Patient on a neuroleptic(s) . Enter below results for Glucose or Hemoglobin A1C, and lipid panel if obtained during the last 365 days. BMI: Blood Pressure: 114/65 Laboratory Results (If applicable): Lab Cholesterol 104 MG/DL 10/15/16 0625 Cholesterol/HDL Ratio 2 % 10/15/16 0625 Glucose 107 mg/dL H 10/15/16 0625 HDL Cholesterol 52 mg/dL 10/15/16 0625 LDL Cholesterol, Calc 20 mg/dL L 10/15/16 0625 Triglycerides 162 mg/dL H 10/15/16 0625 Lab Hemoglobin A1c 4.9 % 10/15/16 0625 Discharge Instructions General Discharge Information Discharge Medications: Discharge Medications- (Dose, route, freq, indication): START taking these NEW Home Medications: Trazodone HCl Dose: ORAL, AT BEDTIME for Qty: 14 Called in to (Trazodone HCl) 100 100 Milligram sleep Refills: 0 Pharm 1 MG TABLET Last Taken: 10/21/16 Time: 2200 Quetiapine Fumarate Dose: ORAL, DAILY @8 AM for Qty: 28 Called in to (Quetiapine 200 Milligram clear thoughts/help mood Refills: 0 Pharm 1 Fumarate) 100 MG Last Taken: 10/22/16 TABLET Time: 0800 Quetiapine Fumarate Dose: ORAL, AT BEDTIME for to Qty: 56 Called in to (Quetiapine 400 Milligram clear thoughts/help mood Refills: 0 Pharm 1 Fumarate) 100 MG Last Taken: 10/21/16 TABLET Time: 2200 Melatonin Dose: ORAL, AT BEDTIME for Qty: 14 Called in to (Melatonin) 5 MG 5 Milligram sleep Refills: 0 Pharm 1 TABLET Last Taken: 10/21/16 Time: 2200 CONTINUE taking these Home Medications: Methadone Hydrochloride Dose: ORAL, Every Morning for (Methadone HCl) 10 MG 50 Milligram ACID REFLUX TABLET Last Taken: 10/22/16 Time: 0800 Gabapentin (Neurontin) Dose: ORAL, THREE TIMES DAILY 300 MG CAPSULE 300 Milligram for ANXIETY Last Taken: 10/17/16 Time: 2200 Docusate Sodium (Colace) Dose: ORAL, TWICE DAILY for 100 MG CAPSULE 100 Milligram STOOL SOFTENING Last Taken: 10/22/16 Time: 0800 STOP taking these DISCONTINUED Home Medications: Quetiapine Fumarate (Seroquel) Dose: ORAL, AM for PSYCHOSIS 100 MG TABLET 100 Milligram Reason Stopped: Changed Dose Quetiapine Fumarate (Seroquel Dose: ORAL, for PSYCHOSIS XR) 300 MG TAB.ER.24H 300 Milligram Reason Stopped: Changed Dose Zolpidem Tartrate (Ambien) 10 Dose: ORAL, TAKE AT BEDTIME for SLEEP MG TABLET 10 Milligram Reason Stopped: Changed to different med 1: [facility] [id number] ([facility] [address] [place], [place] [id number] Multiple Neuroleptics: ([x]) Not Applicable OR Document below three failed attempts at monotherapy, or a plan to taper to monotherapy, or augmentation of Clozapine. () Patient's Diet: Regular. Patient's Activity: No restrictions. DC Disposition: Return to home. Recommendations: Take medications as prescribed. Follow up with scheduled outpatient appointments. See PCP for elevated SGPT 77, elevated trigylcerides 162, anemia with low HgB 11.9, low HCT 36.6 and low platelets 123. Referred To: [facility] walk-in 10/23/16. Copies To: [facility]
== END 2016-10-22 12:22 | DRG 753 ==
LOC: CP SOUTH 20:01
PROVIDERS: ADMIT Psychiatry & Neurology Addiction Medicine
DX: F31.5 Bipolar disorder, current episode depressed, severe, with psychotic features (principal); F11.20 Opioid dependence, uncomplicated; Z85.028 Personal history of other malignant neoplasm of stomach
CPT/HCPCS: 36415; 93005; 93010